=== PATIENT | female | born 1950 | race Caucasian/White ===

== ENCOUNTER 2016-04-23 07:59 | Emergency (ER) | payer MEDICARE, OTHER ==
[~2016-04-23] VITALS: Wt 79.0 kg
[~2016-04-23 07:59] MED LIST: BENA10TA48 PO; METF500T4 PO; OMEP20CA16 PO
[2016-04-23] MEDS ORDERED: DICLOFENAC SODIUM 37.5 MG/ML VIAL IV STA (08:17)
[2016-04-23] MEDS ORDERED: METF-382 PO (08:28)
[2016-04-23] MEDS ORDERED: DEXL60CA2 PO (08:29)
[2016-04-23] MEDS ORDERED: ASPI-664 PO (08:29)
[2016-04-23] MEDS ORDERED: RANI150T5 PO (08:29)
[2016-04-23] MEDS ORDERED: VITA150T PO (08:30)
[2016-04-23] MEDS ORDERED: CYAN100080 PO (08:30)
--- NOTE | 2016-04-23 09:08 | RADRPT ---
PROCEDURE: XR Chest. CLINICAL INDICATION: Pain. TECHNIQUE: Single frontal chest x-ray. COMPARISON: 07/03/2014 FINDINGS: The lungs are clear of acute infiltrates, edema, effusions, or masses. Calcific atherosclerosis of t he aorta is present.. The cardiomediastinal silhouette is unremarkable. The osseous structures are intact. IMPRESSION: No acute cardiopulmonary disease. RPTAT: JJ .Justen Mcdonald MD, MD Date Time Electronically viewed and signed by .Justen Mcdonald MD, on 04/23/2016 09:08 .L/
--- NOTE | 2016-04-23 09:11 | ERD ---
ER Documentation Chief Complaint Date/Time DATE: 04/23/16 TIME: 09:06 Chief Complaint BILATERAL FLANK PAIN SINCE YESTERDAY WITH MILD N/V HPI This is a very pleasant 66-year-old female with known history of non-insulin- dependent diabetes mellitus, hypertension and arthritis that presents to the emergency department complaining of a 5 day history of right shoulder pain. She indicates that the shoulder pain is a dull achy sensation that is exacerbated by movement and worse in the morning. She denies any recent or remote trauma to the right shoulder and she also indicates that she is right- handed dominant. She does take aspirin and a multivitamin for the pain but she states this has not improved her discomfort which is 6 out of 10 in intensity. She denies any numbness or tingling of her right upper extremity. She has no chest pain or pressure that radiates to the neck arm back or jaw. She does indicate that she is experiencing bilateral flank pain that began yesterday morning upon awakening. She stated the pain is a sharp stabbing pain more prominent on the right than the left. The flank pain does not radiate to the right or the left lower quadrant. She has had no frequency urgency or dysuria. She denies any gross hematuria. She has no shortness of breath at rest or exertion. She denies any constipation or diarrhea. She states she has never had any similar symptoms in the past ROS All systems reviewed and are negative except as per history of present illness. Medications Home Meds Active Scripts Naproxen* (Naprosyn*) 500 Mg Tablet, 500 MG PO BID Y for PAIN AND/OR INFLAMMATION, #30 TAB Prov:MARIA ESTHER GALAN 04/23/16 Reported Medications Vitamin B Complex & Vit C No.4 (Super B Complex) 150 Mg Tablet, 150 MG PO DAILY , TAB 04/23/16 Cyanocobalamin* (Vitamin B-12*) 1,000 Mcg Tablet.sa, 1000 MCG PO DAILY, TAB 04/23/16 Ranitidine Hcl* (Ranitidine Hcl*) 150 Mg Tablet, 150 MG PO Q12, #60 TAB 04/23/16 Dexlansoprazole (Dexilant) 60 Mg Cap..veronika, 60 MG PO DAILY, #30 CAP 04/23/16 Aspirin (Low Dose Aspirin) 81 Mg Tablet., 81 MG PO DAILY, #30 TAB 04/23/16 Metformin Hcl* (Metformin Hcl*) 500 Mg Tablet, 500 MG PO WITH BREAKFAST DINNE, # 30 TAB 04/23/16 Benazepril Hcl* (Benazepril Hcl*) 10 Mg Tablet, 10 MG PO DAILY, TAB 07/03/14 Discontinued Reported Medications Omeprazole* (Omeprazole*) 20 Mg Capsule.dr, 20 MG PO BID, CAP 07/03/14 Metformin* (Glucophage*) 500 Mg Tab, 250 MG PO DAILY, TAB 07/03/14 Allergies Allergies: Coded Allergies: No Known Allergy (Unverified , 04/23/16) PMhx/Soc History of Surgery: Yes (HYSTERECTOMY, HERNIA REPAIR) Anesthesia Reaction: No Hx Neurological Disorder: No Hx Respiratory Disorders: No Hx Cardiac Disorders: Yes (HTN, HYPERLIPIDEMIA) Hx Miscellaneous Medical Probl: Yes (DM, GERD) Hx Alcohol Use: No Hx Substance Use: No Hx Tobacco Use: No Smoking Status: Never smoker Physical Exam Vitals Vital Signs Date Time Temp Pulse Resp B/P Pulse Ox O2 Delivery O2 Flow Rate FiO2 04/23/16 08:01 99.0 63 18 174/74 98 Physical Exam Constitutional:Well-developed. Well-nourished. HEENT:Normocephalic. Atraumatic.Pupils were equal round reactive to light. Moist mucous membranes.No tonsillar exudates. Neck: No nuchal rigidity. No lymphadenopathy. No posterior cervical spine tenderness or step-offs. Respiratory: Not using accessory muscles of respiration.Lungs were clear to auscultation bilaterally. No rhonchi. No rales. No wheezing. Cardiovascular: Regular rate regular rhythm.No murmurs. No rubs were appreciated.S1, S2 normal. Distal pulses are palpable 2+ bilaterally. GI: Abdomen was soft. Mild tenderness in the left lower. Non Distended. No pulsatile abdominal masses or bruits. No rebound. No guarding. Bowel sounds were present and normal. Right CVA tenderness. No tenderness over McBurney's point in the right lower quadrant. Psoas sign negative. Obturator sign negative. Muscle skeletal: Full range of motion of both the upper and lower extremities bilaterally.Normal muscle tone.No assymetrical calf tenderness or swelling. Patient is able to AB duct the right upper extremity past 90. Reproducible tenderness of the right acromioclavicular joint with normal light of the right humeral head. Flexion extension of the right elbow is grossly normal. Radial and ulnar pulses are equal and symmetrical bilaterally. Skin: No petechia, no purpura. No lesions on the palms or the soles of the feet. No maculopapular rash. NEURO: Patient was alert, awake, orientated x3.No facial droop. Gait observed and normal with no ataxia.Speech had regular rate and rhythm. No focal neurological deficits. Sensation intact over the radial ulnar and axillary nerve distribution bilaterally Result Diagram: 04/23/1682404/23/1625 Results 24 hrs Laboratory Tests Test 04/23/16 08:25 Alanine Aminotransferase (ALT/SGPT) 46IU/L Albumin 4.4g/dl Albumin/Globulin Ratio 1.25 Alkaline Phosphatase 82IU/L Amylase Level 49U/L Anion Gap 16 Aspartate Amino Transf (AST/SGOT) 38IU/L Basophils # 0.010^3/ul Basophils % 0.9% Blood Urea Nitrogen 11mg/dl Calcium Level 9.5mg/dl Carbon Dioxide Level 27mmol/L Chloride Level 105mmol/L Creatinine 0.54mg/dl Direct Bilirubin 0.00mg/dl Eosinophils # 0.110^3/ul Eosinophils % 1.8% Globulin 3.50g/dl Glucose Level 92mg/dl Hematocrit 41.6% Hemoglobin 14.0g/dl Indirect Bilirubin 0.9mg/dl Lipase 36U/L Lymphocytes # 1.610^3/ul Lymphocytes % 32.0% Mean Corpuscular Hemoglobin 29.6pg Mean Corpuscular Hemoglobin Concent 33.7g/dl Mean Corpuscular Volume 87.8fl Mean Platelet Volume 10.0fl Monocytes # 0.310^3/ul Monocytes % 6.5% Neutrophils # 2.910^3/ul Neutrophils % 58.8% Nucleated Red Blood Cells # 0.010^3/ul Nucleated Red Blood Cells % 0.0/100WBC Platelet Count 24243^3/UL Potassium Level 4.4mmol/L Red Blood Count 4.7310^6/ul Red Cell Distribution Width 14.2% Sodium Level 144mmol/L Total Bilirubin 0.9mg/dl Total Protein 7.9g/dl Troponin I < 0.012ng/ml White Blood Count 5.010^3/ul Current Medications Medications (Trade) Dose Ordered Sig/Cherelle Route PRN Reason Start Time Stop Time Status Last Admin Dose Admin Diclofenac Sodium (Dyloject) 37.5 mg ONCE STAT IV 04/23/16 08:17 04/23/16 08:20 DC 04/23/16 08:28 Procedures/MDM The patient presented to the emergency department with flank pain. My differential diagnosis included but was not limited to spinal origins of the pain such as fracture, osteomyelitis, epidural abscess, neoplasm, spondylolishtesis, discogenic, cauda equina syndrome or musculoligamentous. Nonspinal causes such as AAA, upper UTI, renal colic, aortic dissection, abdominal neoplasm were also considered as an etiology into their pain. Obtained a CT scan of the abdomen which showed no evidence of an acute emergent pathology. The patient did have diverticulosis without diverticulitis which did not explain the flank plain but did explain the patient's left lower quadrant pain. I did obtain ancillary laboratory work and establish IV access. The patient had no electrolyte abnormalities. She received IV NSAIDs for analgesic control as this did appear to be more likely arthritic pain. I did obtain a shoulder radiograph which showed no evidence of fractures or dislocations. The 2 views were reviewed by myself and the radiologist of the right shoulder. I obtained a 12-lead EKG tracing to rule out atypical myocardial infarction. 12 Lead EKG tracing ordered and reviewed by myself showed: Sinus bradycardia 52 bpm and no arrhythmia. IL interval normal. QRS duration normal. No ST segment elevation No ST segment depression. No changes consistent with acute ischemia. The patient was discharged home in fair condition. They were instructed to return to the emergency department at any time if there was any worsening of their condition. The patient stated they would follow up with their PCP in the next 24-48 hours to initiate a suitable medication regimen under the care of their PCP as well as to allow their PCP to monitor any drug reactions. The patient was discharged home with prescriptions after they gave informed consent to the new medication. They were also fully informed by myself on the adverse effects and adverse drug interactions in order to provide adequate safeguards to prevent possible adverse reactions to medications. Departure Diagnosis: Primary Impression: Flank pain Additional Impressions: Shoulder pain, right Chronicity: acute Qualified Code: M25.511 - Acute pain of right shoulder Arthralgia of right shoulder region Condition: Fair MARIA ESTHER GALAN Apr 23, 2016 09:11
--- NOTE | 2016-04-23 09:13 | RADRPT ---
PROCEDURE: CT Abdomen and Pelvis without contrast. CLINICAL INDICATION: Abdominal pain TECHNIQUE: CT scan of the abdomen and pelvis without contrast was performed on a multidetector hig h-resolution CT scanner. The patient was scanned without intravenous contrast. Coronal and sagittal reformatted images were obtained from the axial source images. Images were reviewed on a high-resol [employer] PACS workstation. The total exam CTDI equals 15.34 mGy and the total exam DLP equals 815.88 mG y-cm. One or more of the following dose reduction techniques were used: Automated exposure control. Adjustment of the mA and/or kV according to patient size. Use of iterative reconstruction technique. COMPARISON: None FINDINGS: CT abdomen: The lung bases are remarkable for calcified granuloma in the right lung base. The heart size is nor mal, without pericardial thickening or effusion. The liver is normal in size and density without fo jimmie mass or intrahepatic biliary dilatation. The spleen is normal in size and homogeneous in densit y. The stomach is partially collapsed, but is grossly unremarkable. The pancreas as visualized is normal. The gallbladder and biliary tree are unremarkable and there is no evidence for biliary dila tation. The adrenal glands are symmetric and normal. The kidneys are symmetrically unremarkable as well. No renal calculus or obstructive uropathy or mass lesion is seen. The aorta is of normal caliber. Aortic vascular calcifications are present. There is no retroperit thompson lymphadenopathy. The alejo hepatis region is clear. The bowel and mesentery, as visualized, are equally unremarkable. CT pelvis: The small bowel loops situated within the pelvis are unremarkable. There is a normal appendix. The u terus is surgically absent. The pelvic sidewalls and inguinal regions are clear. The sigmoid colon and rectum are remarkable for sigmoid diverticulosis. No mass, lymphadenopathy, or free fluid is se en. No acute inflammation is seen. No osteolytic or osteoblastic lesion is detected. IMPRESSION: 1. No mass, lymphadenopathy, or focal acute inflammatory process is identified. 2. Sigmoid diverticulosis without evidence of acute diverticulitis. 3. Normal appendix. 4. Scattered aortoiliac atherosclerosis. RPTAT: BB .Lata Shelley MD, MD Date Time Electronically viewed and signed by .Lata Shelley MD, MD on 04/23/2016 09:12 .O/
--- NOTE | 2016-04-23 09:13 | RADRPT ---
PROCEDURE: XR Shoulder. CLINICAL INDICATION: Right shoulder pain TECHNIQUE: Three views of the right shoulder are available for review. COMPARISON: None FINDINGS: The osseous structures, articular spaces, and surrounding soft tissues of the right shoulder are int act. No acute fracture or dislocation is seen. No radiopaque foreign body is identified. The acrom ioclavicular joint is grossly unremarkable. The visualized portions of the right clavicle and upper right rib cage are equally unremarkable. IMPRESSION: 1. Unremarkable right shoulder x-ray series. 2. No acute fracture or dislocation is seen. RPTAT: BB .Lata Shelley MD, Date Time Electronically viewed and signed by .Lata Shelley MD, MD on 04/23/2016 09:13 .O/
[2016-04-23 09:20] LABS: ALBUMIN 4.4 g/dl (3.3-4.9)
[2016-04-23 09:21] LABS: CHLORIDE 105 mmol/L (97-110); POTASSIUM 4.4 mmol/L (3.5-5.1); SODIUM 144 mmol/L (135-144)
[2016-04-23 09:23] LABS: ALBUMIN/GLOBULIN RATIO 1.25; AMYLASE 49 U/L (11-123); ANION GAP 16 (8-16); ASPARTATE AMINO TRANSFERASE 38 IU/L (15-46); BILIRUBIN,INDIRECT 0.9 mg/dl (0-1.1); BILIRUBIN,TOTAL 0.9 mg/dl (0.2-1.3); CARBON DIOXIDE 27 mmol/L (21-31); CREATININE 0.54 mg/dl (0.44-1.00); TOTAL PROTEIN 7.9 g/dl (6.1-8.1)
[2016-04-23 09:24] LABS: ALANINE AMINOTRANSFERASE 46 IU/L (13-69); ALKALINE PHOSPHATASE 82 IU/L (42-121); BLOOD UREA NITROGEN 11 mg/dl (7-20); CALCIUM 9.5 mg/dl (8.4-10.2); GLUCOSE 92 mg/dl (70-220)
[2016-04-23 09:26] LABS: BASOPHILS % 0.9 % (0.0-2.0); CONDITION 1; EOSINOPHILS # 0.1 10^3/ul (0.0-0.5); EOSINOPHILS % 1.8 % (0.0-7.0); HEMATOCRIT 41.6 % (37.0-47.0); LYMPHOCYTES # 1.6 10^3/ul (0.8-2.9); MEAN CORPUSCULAR HEMOGLOBIN 29.6 pg (29.0-33.0); MEAN CORPUSCULAR HGB CONC 33.7 g/dl (32.0-37.0); MEAN CORPUSCULAR VOLUME 87.8 fl (82.0-101.0); MONOCYTE # 0.3 10^3/ul (0.3-0.9); MONOCYTES % 6.5 % (0.0-11.0); NEUTROPHIL # 2.9 10^3/ul (1.6-7.5); NEUTROPHILS % 58.8 % (39.0-77.0); PLATELET COUNT 221 10^3/UL (140-440); RED BLOOD COUNT 4.73 10^6/ul (4.20-5.40); RED CELL DISTRIBUTION WIDTH 14.2 % (11.5-14.5)
[2016-04-23 09:56] LABS: TROPONIN-I < 0.012 ng/ml (0.00-0.12)
[2016-04-23] MEDS ORDERED: NAPR-260 PO (10:12)
[2016-04-23 10:35] VITALS: BP 135/87; PULSE 65; RESP 18; TEMP 99
== END 2016-04-23 10:35 | disposition home or self-care (01) ==
LOC: E/R 07:59
DX: R10.32 Left lower quadrant pain (principal); M25.511 Pain in right shoulder; I10 Essential (primary) hypertension; E11.9 Type 2 diabetes mellitus without complications; Z79.82 Long term (current) use of aspirin; Z79.84 Long term (current) use of oral hypoglycemic drugs
CPT/HCPCS: 71010; 74176; 80053; 82150; 83690; 84484; 85025; 96374

== ENCOUNTER 2016-08-25 08:38 | Emergency (ER) | payer MEDICARE, OTHER ==
[~2016-08-25] VITALS: Ht 154.9 cm; Wt 74.0 kg
[~2016-08-25 08:38] MED LIST changes: +ASPI-664 PO; +CYAN100080 PO; +DEXL60CA2 PO; +NAPR-260 PO; -OMEP20CA16 PO; +RANI150T5 PO; +VITA150T PO
[2016-08-25 08:41] VITALS: Ht 154.9 cm; Wt 74.0 kg
[2016-08-25] MEDS ORDERED: TRAM50TA2 PO (09:16)
[2016-08-25] MEDS ORDERED: NAPR-260 PO (09:16)
--- NOTE | 2016-08-25 09:43 | ERD ---
ER Documentation Chief Complaint Date/Time DATE: 08/25/16 TIME: 09:41 Chief Complaint med refil on pain meds c/o bodyache HPI 58-year-old female history of diabetes comes emergency department continuing pain to bilateral hands bilateral feet, with history of arthritis. She has been told that this is arthritis and previously had been taking Naprosyn on and off. No associated fevers or chills. She denies weakness, chest pain or shortness of breath. ROS All systems reviewed and are negative except as per history of present illness. Medications Home Meds Active Scripts Naproxen* (Naprosyn*) 500 Mg Tablet, 500 MG PO BID Y for PAIN AND/OR INFLAMMATION, #30 TAB Prov:ANDREAS MCQUEEN PA-C 08/25/16 Tramadol HCl (Tramadol HCl) 50 Mg Tablet, 50 MG PO Q4 Y for PAIN, #20 TAB Prov:ANDREAS MCQUEEN PA-C 08/25/16 Naproxen* (Naprosyn*) 500 Mg Tablet, 500 MG PO BID Y for PAIN AND/OR INFLAMMATION, #30 TAB Prov:MARIA ESTHER GALAN 04/23/16 Reported Medications Vitamin B Complex & Vit C No.4 (Super B Complex) 150 Mg Tablet, 150 MG PO DAILY , TAB 04/23/16 Cyanocobalamin* (Vitamin B-12*) 1,000 Mcg Tablet.sa, 1000 MCG PO DAILY, TAB 04/23/16 Ranitidine Hcl* (Ranitidine Hcl*) 150 Mg Tablet, 150 MG PO Q12, #60 TAB 04/23/16 Dexlansoprazole (Dexilant) 60 Mg Cap., 60 MG PO DAILY, #30 CAP 04/23/16 Aspirin (Low Dose Aspirin) 81 Mg Tablet.dr, 81 MG PO DAILY, #30 TAB 04/23/16 Metformin Hcl* (Metformin Hcl*) 500 Mg Tablet, 500 MG PO WITH BREAKFAST DINNE, # 30 TAB 04/23/16 Benazepril Hcl* (Benazepril Hcl*) 10 Mg Tablet, 10 MG PO DAILY, TAB 07/03/14 Allergies Allergies: Coded Allergies: No Known Allergy (Unverified , 04/23/16) PMhx/Soc History of Surgery: Yes (HYSTERECTOMY, HERNIA REPAIR) Anesthesia Reaction: No Hx Neurological Disorder: No Hx Respiratory Disorders: No Hx Cardiac Disorders: Yes (HTN, HYPERLIPIDEMIA) Hx Miscellaneous Medical Probl: Yes (DM, GERD) Hx Alcohol Use: No Hx Substance Use: No Hx Tobacco Use: No Smoking Status: Never smoker Physical Exam Vitals Vital Signs Date Time Temp Pulse Resp B/P Pulse Ox O2 Delivery O2 Flow Rate FiO2 08/25/16 08:41 98.1 68 18 145/70 96 Physical Exam General: Well-developed, well-nourished. The patient appears in no acute distress. HEENT: Head is normocephalic, atraumatic. No scleral icterus. Neck: Supple. Nontender. Lungs: Clear to auscultation. Normal air movement. Heart: Regular rate and rhythm. S1 and S2 are normal. No murmurs, gallops, or rubs. Abdomen: Soft, nontender, nondistended. Bowel sounds are normoactive. Extremities: No clubbing or cyanosis. Normal pulses. Moving extremities x 4. No weakness. No erythema, no warmth. Neurologic: Alert and oriented 3. No focal deficits. Skin: Normal turgor. No rash or lesions. Results 24 hrs Laboratory Tests Test 08/25/16 09:10 Bedside Glucose 113mg/dL Procedures/MDM MDM: 58-year-old female presents with bilateral hand and feet pain, patient has had ongoing pain and appears that she was seen for similar presentation in March when she was given Naprosyn. Patient will be given Naprosyn to continue for low to moderate pain, and tramadol for moderate to severe pain. She does not show any signs of fracture, DVT, cellulitis, or limb threatening process. This appears to be a chronic issue, will be given another prescription for Naprosyn. This patient does have history of diabetes, and Accu -Chek was normal today. She does not have any signs of DKA, altered mental status, acute coronary syndrome, dissection. Patient's blood pressure was elevated (>120/80) but appears stable without evidence of hypertension emergency or urgency. The patient was counseled about the risks of hypertension and urged to pursue outpatient monitoring and therapy within a week with their primary care physician. Departure Diagnosis: Primary Impression: Arthritis Additional Impression: Encounter for medication refill Condition: Good Patient Instructions: What Is Arthritis? Additional Instructions: Llame al doctor DAVIAN y janet guero JOSE PARA DENTRO DE 1-2 REYNOSO.Dgale a la secretaria que nosotros le instruimos hacer esta jose.Avise o llame si sewell condicin se empeora antes de la jose. Regresa aqui si peor o no mejor. ANDREAS MCQUEEN PA-C August 25, 2016 09:43
== END 2016-08-25 10:42 | disposition home or self-care (01) ==
LOC: FTE 08:38
DX: M19.041 Primary osteoarthritis, right hand (principal); E11.9 Type 2 diabetes mellitus without complications; I10 Essential (primary) hypertension; M19.042 Primary osteoarthritis, left hand; M19.071 Primary osteoarthritis, right ankle and foot; M19.072 Primary osteoarthritis, left ankle and foot; Z79.82 Long term (current) use of aspirin; Z79.84 Long term (current) use of oral hypoglycemic drugs
CPT/HCPCS: 82962; 99283